=== PATIENT | male | born 1970 | race African-American/Black ===

== ENCOUNTER 2019-11-30 20:44 | Emergency (ER) | payer SELFPAY ==
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
[2019-11-30 22:36] VITALS: BP 148/74; PULSE 88; TEMP 98.3; BMI 34.8
[2019-11-30] MEDS ORDERED: ACETAMINOPHEN 500 MG TABLET (FP) PO ONE (23:10)
[2019-11-30] MEDS ORDERED: ACETAMINOPHEN 325 MG TABLET (FP) ONE (23:18)
--- NOTE | 2019-12-01 11:51 | EKG ---
Test Reason : Blood Pressure : / mmHG Vent. Rate : 076 BPM Atrial Rate : 076 BPM P-R Int : 158 ms QRS Dur : 082 ms QT Int : 376 ms P-R-T Axes : 068 061 038 degrees QTc Int : 423 ms NORMAL SINUS RHYTHM MINIMAL VOLTAGE CRITERIA FOR LVH, MAY BE NORMAL VARIANT BORDERLINE ECG NO PREVIOUS ECGS AVAILABLE Confirmed by NIDHI WYATT MD ([id number]) on 12/01/2019 11:50:59 AM Referred By: Confirmed By:NIDHI WYATT MD
== END 2019-11-30 23:24 | disposition home or self-care (01) ==
LOC: JER 20:44
DX: R07.9 Chest pain, unspecified (principal); Z59.0 Homelessness
CPT/HCPCS: 93005; 93010; 99282-25